=== PATIENT | female | born 1985 | race Caucasian/White ===

== ENCOUNTER → 2017-01-25 | Outpatient (CLI) | payer OTHER | END | disposition home or self-care (01) | LOC: C.PAPS 11:11 | PROVIDERS: ATTEND Physician Assistant | DX: Z12.4 Encounter for screening for malignant neoplasm of cervix (principal) ==

== ENCOUNTER 2022-01-09 02:47 | Inpatient (IN) ==
[2022-01-09] MEDS ORDERED: SODIUM CHLORIDE 0.9% INJ 10 ML VIAL ONE (03:04)
[2022-01-09] MEDS ORDERED: ePHEDrine sulfate 50 MG/ML AMP ONE (03:04)
[2022-01-09] MEDS ORDERED: fentaNYL citrate 100 MCG/2 ML VIAL ONE (03:04)
[2022-01-09] MEDS ORDERED: fentaNYL 2MCG/ML ROPIVACAINE 1.25MG/ML 100 ML BAG EPI ONE (03:05)
[2022-01-09] MEDS ORDERED: LIDOCAINE 2%/EPINEPHRINE 1:200,000 20 ML SDV ONE (03:05)
[2022-01-09] MEDS ORDERED: BUPIVACAINE 0.25% 30 ML VIAL ONE (03:05)
[2022-01-09] MEDS ORDERED: ONDANSETRON INJ 2 MG/ML 2 ML VIAL IV PRN (03:12)
[2022-01-09] MEDS ORDERED: NALBUPHINE HCL INJ 10 MG/ML AMP IV PRN (03:12)
[2022-01-09] MEDS ORDERED: ePHEDrine sulfate 50 MG/ML AMP IV PRN (03:12)
[2022-01-09] MEDS ORDERED: NALOXONE HCL 0.4 MG/1 ML VIAL/CARP IV PRN (03:12)
[2022-01-09] MEDS ORDERED: diphenhydrAMINE 50 MG/ML VIAL IV PRN (03:12)
[2022-01-09] MEDS ORDERED: PROMETHAZINE HCL 6.25 MG in SODIUM CHLORIDE 0.9% 50 ML IV PRN (03:12)
[2022-01-09] MEDS ORDERED: fentaNYL 2MCG/ML ROPIVACAINE 1.25MG/ML 100 ML BAG EPI PRN (03:12)
[2022-01-09] MEDS ORDERED: NALOXONE HCL 1 MG in SODIUM CHLORIDE 0.9% 1000ML 1,000 ML IV PRN (03:12)
--- NOTE | 2022-01-09 03:12 | Anesthesiology Consultation ---
Date of Service January 09, 2022 Assessment & Plan Chart Review Chart Review: Patient NOT seen in Pre Admission Testing and Acceptable Risk for Labor Epidural Consults Requested none ASA ASA2 Proposed Anesthesia Anesthesia Type: Labor Epidural Risk / Benefits Reviewed With: PT / POA / Parent / Guardian, Accepts Plan and Informed Consent Obtained History Allergies Allergy/AdvReac Type Severity Reaction Status Date / Time varenicline [From Chantix] AdvReac Intermediate Mood swings Verified 01/05/22 08:34 Medications Home Medications Medication Instructions Recorded Confirmed Last Taken acetone (urine) test (Ketone Urine #50 ea 09/05/21 01/05/22 Unknown Test strips) blood sugar diagnostic (OneTouch #150 ea 09/05/21 01/05/22 Unknown Verio test strips) blood-glucose meter (OneTouch #1 ea 09/05/21 01/05/22 Unknown Verio Flex Meter) lancets 33 gauge (OneTouch Delica #150 ea 09/05/21 01/05/22 Unknown Plus Lancet) Past Medical History Medical History Allergic rhinitis Anxiety disorder BPPV (benign paroxysmal positional vertigo) Dysfunctional uterine bleeding H/O scabies Hx of varicella Knee injury Laceration of right index finger w/o foreign body w/o damage to nail Low back pain with sciatica Lumbago Lumbar strain Small for dates fetus Vulvar abscess Work related injury Exercise / Class Metabolic Activity II 4-5 Yardwork/Stairs/Walk up hill Past Family History Family History Aunt Diabetes Grandmother (Maternal) Diabetes Hypertension Grandfather (Maternal) Diabetes Hypertension Family/Other Twins, both liveborn Denies family history of Ovarian cancer Breast cancer Colorectal cancer Cancer Past Surgical History Surgical History No pertinent past surgical history Past Anesthesia History No Hx of Anesthesia Complications and No Family Hx of Anesthesia Complications History of PONV No Hx of PONV and No Hx of Motion Sickness Social History Smoking Status: Never smoker Hx Alcohol Use: No Hx Substance Use: Yes substance use type: marijuana Last Used Substance: Days (ago) Last Used Substance Other:: 1 smokes 1gm-0.5gm per day Physical Exam Vital Signs Last Vital Signs Pulse 91 H 01/09/22 03:06 BP 162/67 H 01/09/22 03:06 ENMT Mouth: no dentition abnormality Thyromental Distance: > or= 3.5 Finger Breadths Mallampati Class: II Neck normal visual inspection Respiratory normal respiratory effort Auscultation: lungs clear to auscultation bilaterally Cardiovascular Rate/Rhythm: regular rate and regular rhythm Psychiatric Orientation: alert
[2022-01-09] MEDS ORDERED: OXYTOCIN 30 UNITS/500 ML BAG IV PRN (03:18)
[2022-01-09] MEDS ORDERED: LACTATED RINGER'S 1,000 ML IV PRN (03:18)
--- NOTE | 2022-01-09 03:42 | History & Physical Report ---
Date of Service January 09, 2022 Assessment & Plan (1) Supervision of elderly multigravida: (2) Gestational diabetes: (3) Marijuana abuse: (4) Need for rhogam due to Rh negative mother: Plan 36 y/o at 40 wga in labor VSS Fetus cat 1 Labor - expectant management GDM - will get BG GBS neg desires epidural UDS for marijuana use, pt aware History of Present Illness Chief Complaint: Labor Primary Care Provider: Cory Ovalles MD 36 y/o at 40 wga presents with ctx increasing in frequency and intensity. 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 Hx: G1 2004 at 39 wks G2 2007 at 38 wks G3 2019 SAB G4 2020 SAB G5 current Denies hx STIs 12/2019 neg cyto Allergies Allergy/AdvReac Type Severity Reaction Status Date / Time varenicline [From Chantix] AdvReac Intermediate Mood swings Verified 01/05/22 08:34 Home Medications Medication Instructions Recorded Confirmed Type acetone (urine) test (Ketone Urine #50 ea 09/05/21 01/05/22 Rx Test strips) blood sugar diagnostic (OneTouch #150 ea 09/05/21 01/05/22 Rx Verio test strips) blood-glucose meter (OneTouch #1 ea 09/05/21 01/05/22 Rx Verio Flex Meter) lancets 33 gauge (OneTouch Delica #150 ea 09/05/21 01/05/22 Rx Plus Lancet) Patient History Medical History Allergic rhinitis Anxiety disorder BPPV (benign paroxysmal positional vertigo) Dysfunctional uterine bleeding H/O scabies Hx of varicella Knee injury Laceration of right index finger w/o foreign body w/o damage to nail Low back pain with sciatica Lumbago Lumbar strain Small for dates fetus Vulvar abscess Work related injury Surgical History No pertinent past surgical history Family History Aunt Diabetes Grandmother (Maternal) Diabetes Hypertension Grandfather (Maternal) Diabetes Hypertension Family/Other Twins, both liveborn Denies family history of Ovarian cancer Breast cancer Colorectal cancer Cancer Social History Smoking Status: Never smoker Tobacco Type: Cigarettes packs per day: 1; Hx Alcohol Use: No Hx Substance Use: Yes Prescribed Medications: Marijuana Last Used Substance: Days (ago) Last Used Substance Other:: 1 smokes 1gm-0.5gm per day Preferred Language: Portuguese marital status: marital status details: Hernán Fernandes (38) [phone] Current Living Situation: Spouse and Family Current Living Situation Comment: FOB, 2 kids, 1 roomate, 3 cats, 2 bunny, not changing litter current occupational status: employed current occupation: Delivery Drivers for [employer] Feels Safe at Home: Yes Physical Exam Genitourinary: Manual OB Exam: + cervical dilation 7 cm, + cervical effacement 90% and + station 0 OB Exam Monitor Tracing: + external FHT monitor used, + external uterine monitor used (q5) and + category I (125/mod/+accel/-decel) Results & Data ([facility]) Vital Signs (Past 12 Hours) Vital Signs Pulse BP Pulse Ox 01/09/22 03:29 88 172/92 H 01/09/22 03:28 88 100 01/09/22 03:25 81 151/85 H 01/09/22 03:23 89 157/89 H 100 01/09/22 03:06 91 H 162/67 H 01/09/22 03:04 88 163/99 H Laboratory Results OB Labs: Blood Type O Negative 06/08/21 Antibody Screen NEGATIVE 10/19/21 Hemoglobin 12.2 g/dL (12.0-16.0) 10/19/21 Hematocrit 35.3 % (37-47) L 10/19/21 Mean Corpuscular Volume 89.3 fL (80-100) 06/08/21 Platelet Count 313 K/uL (130-400) 06/08/21 Rubella IgG Antibody Immune (Immune) 06/08/21 Rapid Plasma Reagin Nonreactive (Nonreactive) 06/08/21 Hepatitis B Surface Antigen Neg (Neg) 06/08/21 Hepatitis C Antibody Neg (Neg) 06/08/21 HIV (1&2) Ab and P24 Ag, 4th Gener Neg (Neg) 06/08/21 Glucose 1 Hour 50 gm Load 172 mg/dl (70-130) H 07/27/21 Maternal Serum Alpha Fetoprotein 27.1 ng/mL 07/27/21 OB Optional Labs: Chlamydia trachomatis RNA NOT DETECTED (NOT DETECTED) 06/08/21 Neisseria gonorrhoeae RNA NOT DETECTED (NOT DETECTED) 06/08/21 Alpha Fetoprotein Triple Screen SEE NOTE 07/27/21 Labs Reviewed: low risk panorama--ak cf/sma neg--akh neg afp--akh failed 16 week 2 hr gtt--ak GBS neg Diagnostic Findings post plac Coding Level of Care Code None Diagnoses Supervision of elderly multigravida O09.529 Gestational diabetes O24.419 Marijuana abuse F12.10 Need for rhogam due to Rh negative mother Z29.13
[2022-01-09 03:55] LABS: Hematocrit (blood only) 38.5 % (34.1-44.9); Hemoglobin 12.9 g/dl (12.0-16.0); Mean Corpuscular Hemoglobin 30.9 pg (25.0-34.0); Mean Corpuscular Hgb Conc 33.5 g/dL (32.0-36.0); Mean Corpuscular Volume 92.3 fL (80.0-100.0); Mean Platelet Volume 10.8 fL (9.4-12.3); Platelet Count 222 K/uL (130-400); RDW Coefficient of Variation 13.3 % (11.5-14.5); RDW Standard Deviation 45.1 fL (36.4-46.3); Red Blood Count 4.17 M/uL (3.93-5.22); White Blood Count 13.41 K/ul (4.8-10.8)
[2022-01-09 05:16] LABS: Amphetamines+Metham, Urine Neg (Neg); Barbiturates, Urine Neg (Neg); Benzodiazepine, Urine Neg (Neg); Cocaine, Urine Neg (Neg); MDMA (Ecstacy), Urine Neg (Neg); Methadone, Urine Neg (Neg); Opiate, Urine Neg (Neg); Phencyclidine, Urine Neg (Neg)
--- NOTE | 2022-01-09 09:03 | Labor Progress Brief Note ---
Date of Service January 09, 2022 Subjective Feeling pressure Assessment & Plan (1) Supervision of elderly multigravida: (2) Gestational diabetes: (3) Marijuana abuse: (4) Normal labor: Admission and Anticipated Discharge Date Admission Date: January 09, 2022 Physical Exam Genitourinary: 10/100/+1 AROM for copious clear with finger during exam Begin second stage; pt very numb but able to push effectively FHT Cat 1 [place] Q3min Results & Data ([place]) Vital Signs (Past 12 Hours) Vital Signs Temp Pulse Resp BP Pulse Ox 01/09/22 08:59 141 H 100 01/09/22 08:54 117 H 100 01/09/22 08:53 100 H 173/115 H 01/09/22 08:51 18 01/09/22 08:51 98.4 F 18 01/09/22 08:49 119 H 100 01/09/22 08:44 94 H 99 01/09/22 08:40 95 H 140/97 01/09/22 08:39 100 01/09/22 08:39 118 H 01/09/22 08:39 110 H 134/92 01/09/22 08:34 97 H 97 01/09/22 08:30 18 01/09/22 08:30 18 01/09/22 08:29 99 H 99 01/09/22 08:25 95 H 137/94 01/09/22 08:24 97 H 100 01/09/22 08:19 89 98 01/09/22 08:14 96 H 98 01/09/22 08:09 112 H 98 01/09/22 08:10 116 H 135/90 01/09/22 08:04 86 99 01/09/22 08:00 16 01/09/22 08:00 16 01/09/22 07:59 108 H 99 01/09/22 07:30 18 01/09/22 07:30 18 01/09/22 07:54 87 98 01/09/22 07:53 104 H 138/93 01/09/22 07:49 98 H 98 01/09/22 07:44 103 H 99 01/09/22 07:39 97 01/09/22 07:39 95 H 01/09/22 07:39 97 H 136/90 01/09/22 07:34 119 H 99 01/09/22 07:33 121 H 133/87 01/09/22 07:29 120 H 99 01/09/22 07:24 111 H 99 01/09/22 07:23 91 H 135/93 01/09/22 07:19 100 H 99 01/09/22 07:14 108 H 100 01/09/22 07:09 103 H 98 01/09/22 07:05 18 01/09/22 07:05 97.7 F 18 01/09/22 07:04 85 97 01/09/22 07:01 112 H 137/81 01/09/22 06:59 94 H 96 01/09/22 06:54 88 96 01/09/22 06:49 102 H 96 01/09/22 06:44 93 H 97 01/09/22 06:39 82 96 01/09/22 06:38 101 H 132/79 01/09/22 06:34 80 95 01/09/22 06:29 89 96 01/09/22 06:24 92 H 96 01/09/22 06:23 93 H 140/83 01/09/22 06:19 91 H 96 01/09/22 06:14 82 96 01/09/22 06:09 86 96 01/09/22 06:08 96 H 139/79 01/09/22 06:04 88 96 01/09/22 05:59 97 H 96 01/09/22 05:54 90 96 01/09/22 05:53 103 H 132/85 01/09/22 05:49 93 H 96 01/09/22 05:44 107 H 96 01/09/22 05:39 89 97 01/09/22 05:34 107 H 95 01/09/22 05:29 85 96 01/09/22 05:24 114 H 132/83 99 01/09/22 05:19 116 H 100 01/09/22 05:14 108 H 99 01/09/22 05:09 90 124/75 100 01/09/22 05:04 76 96 01/09/22 04:59 90 97 01/09/22 04:54 78 126/72 97 01/09/22 04:52 107 H 93 01/09/22 04:49 81 96 01/09/22 04:44 88 96 01/09/22 04:39 80 121/74 96 01/09/22 04:34 84 100 01/09/22 04:29 91 H 97 01/09/22 04:24 84 98 01/09/22 04:25 82 121/75 01/09/22 04:19 88 100 01/09/22 04:14 90 100 01/09/22 04:09 105 H 100 01/09/22 04:08 97 H 128/72 01/09/22 04:04 101 H 100 01/09/22 03:59 102 H 100 01/09/22 03:54 113 H 100 01/09/22 03:49 103 H 100 01/09/22 03:46 100 H 85 L 01/09/22 03:44 110 H 100 01/09/22 03:39 99 H 100 01/09/22 03:36 97 H 134/71 01/09/22 03:34 90 100 01/09/22 03:33 136/82 01/09/22 03:32 104 H 125/72 01/09/22 03:29 88 172/92 H 01/09/22 03:28 88 100 01/09/22 03:25 81 151/85 H 01/09/22 03:23 89 157/89 H 100 01/09/22 03:06 91 H 162/67 H 01/09/22 03:04 88 163/99 H 01/09/22 02:56 97.7 F 18 Coding Level of Care Code None Diagnoses Supervision of elderly multigravida O09.529 Gestational diabetes O24.419 Marijuana abuse F12.10 Normal labor O80; Z37.9
--- NOTE | 2022-01-09 09:42 | Delivery Summary ---
Vaginal Delivery Summary Date of Service January 09, 2022 Vaginal Delivery Summary DIAGNOSES: 1. Valentin intrauterine at 40w0d gestation. 2. Spontaneous onset of labor. 3. Group B Streptococcus Neg. 4. Complete placental abruption. PROCEDURE: Spontaneous vaginal delivery without laceration. SURGEON: Diana De Oliveira MD. SATELLITE TV TECHNICIAN: None. ESTIMATED BLOOD LOSS: 250 mL. COMPLICATIONS: None. PLACENTA: Abrupted: Delivered immediately with , along with large soft clot; intact with a 3-vessel cord. DISPOSITION: Stable to labor and delivery. DESCRIPTION: The patient pushed well and brought the head to in DOA position. The 's head was allowed to deliver with contraction force and no further active pushing, with the perineum protected during this time. There was no nuchal cord. Frankly bloody fluid became apparent flowing around the neck and shoulders after delivery of the head, which was especially notable as there had been absolutely no bloody fluid seen through the entire process. The shoulders and body delivered without any difficulty, and the was placed on the maternal abdomen. Immediately after delivery of the , very soft clot roughly the size of an orange passed spontaneously, along with a gush of liquid blood, and the placenta presented at the vaginal introitus. Gentle exploration showed the placenta was fully detached and present in the vaginal vault, so it was retrieved and placed in the placenta bucket which was held roughly level with the mom and infant. During this, the was vigorous and moving all extremities, and making respiratory efforts. The cord was doubly clamped by the MD and then cut by the FOB. The placenta was set on the back table and will be sent for exam. The cervix, vagina and perineum were examined and were found to be without defect requiring repair. The fundus was firm and lochia minimal immediately after delivery. Review of FHT leading up to delivery shows good variability and decels appropriate for second stage (with pushes, recovering between). This information combined with the presentation of bloody fluid only after the head delivered, and the very soft nature of the clot which delivered with the placenta, suggest that abruption occurred only very shortly before delivery. Cord blood was unfortunately unable to be obtained due to the complete abruption at the time of delivery. [facility] Vaginal Delivery Charge Vaginal Delivery Codes: 73310 global code for the antepartum, delivery, and post-
[2022-01-09] MEDS ORDERED: ACETAMINOPHEN 325 MG TAB PO PRN (09:51)
[2022-01-09] MEDS ORDERED: BENZOCAINE 20% AER SPR 82.5 GM CAN EXT PRN (09:51)
[2022-01-09] MEDS ORDERED: oxyCODONE/ACETAMINOPHEN 5mg/325mg TAB PO PRN (09:51)
[2022-01-09] MEDS ORDERED: DIPHTHERIA/TETANUS/PERTUSSIS 0.5 ML SYR/VIAL IM ONE (09:51)
[2022-01-09] MEDS ORDERED: HYDROCORTISONE ACETATE 25 MG SUPP PR PRN (09:51)
--- NOTE | 2022-01-09 10:15 | Anesthesia Procedure Note ---
Date of Service January 09, 2022 Anesthesia Post Epidural Note Vital Signs Vital Signs: Temp Pulse Resp BP Pulse Ox 36.4 C L 99 H 18 126/60 100 01/09/22 09:45 01/09/22 10:01/09/22 09:45 01/09/22 10:01/09/22 09:29 Notes Mental Status: alert / awake / arousable Patient Amnestic to Procedure: Yes Nausea / Vomiting: adequately controlled Pain: adequately controlled Airway Patency, RR, SpO2: stable & adequate BP & HR: stable & adequate Hydration State: stable & adequate Neuraxial Anesthesia: was administered and sensory block resolved Anesthetic Complications: no major complications apparent Epidural: Removed without complications and With tip intact
[2022-01-09] MEDS ORDERED: SODIUM CHLORIDE 0.9% 250 ML IV PRN (10:48)
[2022-01-09] MEDS: IBUPROFEN 600 MG TAB PO PRN ×2 (12:55→20:58)
[2022-01-09] MEDS: NICOTINE 21 MG/24 HR TDSY TD SCH (15:45)
[2022-01-09] MEDS: DOCUSATE SODIUM 100 MG CAP PO SCH (20:58)
[2022-01-09] MEDS ORDERED: CALCIUM CARBONATE 500 MG CHEWABLE TAB PO PRN (22:37)
[2022-01-10] MEDS: IBUPROFEN 600 MG TAB PO PRN (03:25)
[2022-01-10 06:37] LABS: Hematocrit (blood only) 29.5 % (34.1-44.9); Hemoglobin 10.2 g/dl (12.0-16.0); Mean Corpuscular Hgb Conc 34.6 g/dL (32.0-36.0); Mean Corpuscular Volume 89.7 fL (80.0-100.0); Mean Platelet Volume 10.7 fL (9.4-12.3); Platelet Count 197 K/uL (130-400); RDW Coefficient of Variation 13.4 % (11.5-14.5); RDW Standard Deviation 44.1 fL (36.4-46.3); Red Blood Count 3.29 M/uL (3.93-5.22); White Blood Count 15.76 K/ul (4.8-10.8)
--- NOTE | 2022-01-10 06:46 | Obstetrical Progress Note ---
Date of Service <Vonnie Knight DO - Last Filed: 01/10/22 07:27> January 10, 2022 Assessment & Plan <Vonnie Knight DO - Last Filed: 01/10/22 07:27> (1) Normal labor: (2) Supervision of elderly multigravida: (3) Need for rhogam due to Rh negative mother: Plan s/p PPD 1 -O-, GBS-, rubella immune -Hemoglobin reviewed, 12.9 (8/) -encourage ambulation, return to regular diet, monitor lochia -Discussed discharge instructions with patient, awaiting clearance from peds. <Diana De Oliveira MD - Last Filed: 01/10/22 07:44> (1) Normal labor: (2) Supervision of elderly multigravida: (3) Need for rhogam due to Rh negative mother: Subjective <Vonnie Knight DO - Last Filed: 01/10/22 07:27> Adia is a 36 y/o female who is PPD #1 following delivery at 40 0/7 weeks. Patient was seen and examined at bedside. She reports feeling well overall this morning. Notes some abdominal cramping & 3/10 pain well managed on analgesics. . Tolerating meals overnight and able to ambulate some. Has been passing gas and no bowel movement yet. Has some persistent lochia with some improvement this morning. Currently formula feeding. Constitutional: no fever, no chills or no sweats Respiratory: no cough, no dyspnea or no wheezing Cardiovascular: no chest pain, no palpitations or no calf pain Breast: no breast pain Genitourinary (female): no dysuria Neurologic: no headache(s) Physical Exam <Vonnie Knight DO - Last Filed: 01/10/22 07:27> Constitutional WD/WN, vitals as above no acute distress Respiratory no respiratory distress Auscultation: lungs clear to auscultation bilaterally; no rales, no rhonchi and no wheezes Cardiovascular RRR, no murmur, no edema Extremities: no calf tenderness and no edema Negative Griselda's sign bilaterally. Gastrointestinal (Abdomen) Inspection/Auscultation: normal bowel sounds Genitourinary Uterine fundus firm, palpable below the umbilicus. Results & Data ([facility]) <Vonnie Knight DO - Last Filed: 01/10/22 07:27> Vital Signs (Past 12 Hours) Vital Signs Temp Pulse Resp BP Pulse Ox O2 Del Method 01/10/22 03:25 36.5 C 83 16 127/73 99 Room Air 01/09/22 22:54 36.9 C 64 16 133/84 96 Room Air 01/09/22 20:20 36.9 C 93 H 20 134/88 98 Room Air <Diana De Oliveira MD - Last Filed: 01/10/22 07:44> Co-Signing Physician Notes Resident Physician Supervision Note: I interviewed and examined the patient. Discussed with Dr. Knight and agree with findings and plan as documented in the note. Any exceptions or clarifications are listed here: [ ] Documented By: Diana De Oliveira MD, FACOG Resident Activity Tracking <Vonnie Knight DO - Last Filed: 01/10/22 07:27> Resident Involvement: Resident Care Provided Care Provided: OB Delivery
[2022-01-10] MEDS: DOCUSATE SODIUM 100 MG CAP PO SCH (07:43)
[2022-01-10] MEDS: NICOTINE 21 MG/24 HR TDSY TD SCH (07:44)
[2022-01-10] MEDS ORDERED: PRENATAL VITAMIN 1 TAB PO SCH (08:00)
[2022-01-11 02:08] LABS: Marijuana Quant, GCMS Urine 390 ng/mL (<5)
== END 2022-01-10 13:55 | disposition home or self-care (01) | DRG 805 ==
LOC: OPB 02:47 → 4S1 02:53 → 4E1 12:34

== ENCOUNTER 2023-08-21 20:47 | Inpatient (IN) ==
[2023-08-21] MEDS ORDERED: LIDOCAINE 1% LOCAL 20 ML VIAL INFIL PRN (20:53)
[2023-08-21] MEDS ORDERED: OXYTOCIN 30 UNITS/NSS 30 UNITS/500 ML BAG IV PRN (20:53)
--- NOTE | 2023-08-21 21:25 | History & Physical Report ---
Date of Service August 21, 2023 Assessment & Plan (1) IUGR (intrauterine growth restriction) affecting care of mother: (2) IUFD at 20 weeks or more of gestation: Plan: No FHT visualized on bedside scan. Will have formal ultrasound completed to verify further, prior to additional intervention. The maternal HR is in the 140s via pulse oximeter, and therefore produces a potentially confusing tracing that mimics a normal FHT tracing. Presuming confirmation of the current expected diagnosis of IUFD, will discuss with patient and FOB the process of IOL and support through the grief and loss that accompany an event such as this. Severe FGR noted with other complications of , and unclear whether the earlier abdominal trauma is truly causative vs coincidental, however management moving forward does not really require differentiation. Admission and Anticipated Discharge Date Admission Date: August 21, 2023 History of Present Illness Primary Care Provider: Cory Ovalles MD 37yo at 34w3d with SIUP dated by LMP c/w 1st tri US, and complicated by A1GDM, Tobacco smoking, THC use, Rh negative blood type, AMA, and severe IUGR with all measurements <1%ile as recently as two days ago. Adia called 911 and was brought to [facility] due to significant vaginal bleeding. Patient attributed this to being bumped in the abdomen a bit earlier this evening by her son, who was being playful. She felt trickling, noted the bleeding, and was brought here by ambulance. She stated she thought it was all blood, no fluid, and that she had felt the infant move during her ambulance ride. She complains of cramps but is not c/o timeable painful contractions. EMT's remained in the room during this conversation as they had just transferred her from their litter to the L&D bed. Adia met with me in the office just yesterday, at which time she had a reactive NST and reassuring ultrasound with normal UAD and DVP. We reviewed during that visit her recent US done at [facility], and their recommendations for delivery at [facility] at 37 weeks with interim 2x/wk testing to be done partially at [facility] and partially at [facility] for patient convenience and cost-control. She was planning to return to our office Saturday for her next round of testing. Today, the initial heartbeat auscultated on EFM was 130s in the RLQ of the maternal abdomen, and this was tentatively reassuring, however ultrasound was brought to the room at my request to confirm maternal vs source. Adia's radial pulse was also 130s. On ultrasound, with numerous nurses and staff in the room plus Dr. Mcghee the entry level installation technician cryogenic transport driver, unfortunately, we visualized heart chambers that were still, no movement, and subjectively low amniotic fluid without an obvious measurable pocket. Fetus was in vertex presentation. There was significant vaginal bleeding with a clot on the EMT litter measuring approx 1/2" x 4" and additional fresh blood similar to a heavy menstrual flow in the vaginal vault. Exam was 5-6cm, 80%, -2. [place] shows Q1-2min contractions which patient is tolerating well. Allergies Allergy/AdvReac Type Severity Reaction Status Date / Time varenicline [From Chantix] AdvReac Intermediate Mood swings Verified 08/20/23 09:10 Home Medications Medication Instructions Recorded Confirmed Type vit 168-iron 27 mg-folic cap PO 02/19/23 08/20/23 History acid 800 mcg-omega3 235 mg capsule (One-A-Day -1) acetone (urine) test (Ketone Urine #50 ea 04/19/23 08/20/23 Rx Test strips) blood sugar diagnostic (OneTouch #150 ea 04/19/23 08/20/23 Rx Verio test strips) lancets 33 gauge (OneTouch Delica #150 ea 04/19/23 08/20/23 Rx Plus Lancet) Patient History Medical History (Updated 08/21/23 @ 21:28 by Diana De Oliveira MD) IUGR (intrauterine growth restriction) affecting care of mother Vulvar abscess Lumbago Knee injury Dysfunctional uterine bleeding BPPV (benign paroxysmal positional vertigo) Anxiety disorder Allergic rhinitis Marijuana abuse Missed Small for dates fetus Drug use affecting Hx of varicella H/O scabies Work related injury Lumbar strain Low back pain with sciatica Laceration of right index finger w/o foreign body w/o damage to nail Surgical History No pertinent past surgical history Family History Aunt Diabetes Grandmother (Maternal) Diabetes Hypertension Grandfather (Maternal) Diabetes Hypertension Family/Other Twins, both liveborn Denies family history of Ovarian cancer Breast cancer Colorectal cancer Cancer Social History (Updated 02/19/23 @ 13:39 by Francia Paula) Smoking Status: Current every day smoker Tobacco Type: Cigarettes packs per day: 1; Cigarettes Per Day: 1/2- full pack per day; Do You Dip or Chew Tobacco: No; Hx Alcohol Use: No Hx Substance Use: Yes Prescribed Medications: Marijuana Last Used Substance: Days (ago) Last Used Substance Other:: 1 smokes 1gm-0.5gm per day Substance Use Type Other:: edibles Preferred Language: Japanese Communication Ability: Effective Music Professor Required: No Beliefs That Will Affect Care: None marital status: marital status details: Hernán Fernandes (40) [phone] Current Living Situation: Spouse and Family Current Living Situation Comment: spouse 3 kids, 2 cats, kids changing litter current occupational status: employed current occupation: [employer] Feels Safe at Home: Yes Assistive Devices: None Results & Data Vital Signs (Past 12 Hours) Vital Signs Pulse Pulse Ox 08/21/23 21:08 146 H 98 08/21/23 21:03 136 H 99 Coding Level of Care Code None Diagnoses Poor growth affecting management of mother in third trimester, single or unspecified fetus O36.5930 Fetus number: single or unspecified fetus Trimester: third trimester IUFD at 20 weeks or more of gestation O36.4XX0 (1) IUGR (intrauterine growth restriction) affecting care of mother Fetus number: single or unspecified fetus Trimester: third trimester Qualified Code(s): O36.5930 - Maternal care for other known or suspected poor growth, third trimester, not applicable or unspecified
[2023-08-21 21:44] LABS: Hematocrit (blood only) 32.7 % (37.0-47.0); Hemoglobin 11.6 g/dl (12.0-16.0); Mean Corpuscular Hemoglobin 31.4 pg (25.0-34.0); Mean Corpuscular Hgb Conc 35.5 g/dL (32.0-36.0); Mean Corpuscular Volume 88.6 fL (80.0-100.0); Mean Platelet Volume 11.4 fL (9.4-12.4); Platelet Count 247 K/uL (130-400); RDW Standard Deviation 42.1 fL (36.4-46.3); Red Blood Count 3.69 M/uL (4.20-5.40); White Blood Count 19.98 K/ul (4.8-10.8)
[2023-08-21] MEDS ORDERED: SODIUM CHLORIDE 0.9% 250 ML IV PRN (21:45)
[2023-08-21] MEDS: LACTATED RINGER'S 1,000 ML IV PRN (22:00)
--- NOTE | 2023-08-21 22:03 | Labor Progress Brief Note ---
Date of Service August 21, 2023 Subjective Patient experienced vagal response during her bedside formal US. Emesis x1 with diaphoresis and feeling lightheaded. Shortly thereafter improved. Initial IV site in L antecub from ambulance is not running well; attempting 2nd site, IV team required / now in pt room. Bedside formal scan done while I observed, report not yet generated but my understanding is that the scan does confirm IUFD, vertex, with no obvious fluid pocket despite normal DVP yesterday, and placenta highly suspicious for abruption with retroplacental collection. Ongoing VB noted, moderate. Hgb 11.6 with plts 247. Full coags ordered as well as T&C given risks of significant bleeding and coagulopathy associated with abruption. Patient and Lon offered emotional support, counseled on the confirmation of diagnosis, suspected but not confirmed etiology, and plan from this point. Augmentation of PTL to effect delivery, with epidural as patient would prefer one. Assessment & Plan Admission and Anticipated Discharge Date Admission Date: August 21, 2023 Results & Data Vital Signs (Past 12 Hours) Vital Signs Temp Pulse Resp Pulse Ox 08/21/23 21:53 139 H 100 08/21/23 21:49 136 H 93 08/21/23 21:48 127 H 99 08/21/23 21:43 118 H 99 08/21/23 21:38 142 H 99 08/21/23 21:33 142 H 99 08/21/23 21:31 98.6 F 18 08/21/23 21:28 144 H 99 08/21/23 21:23 144 H 99 08/21/23 21:18 141 H 99 08/21/23 21:13 146 H 100 08/21/23 21:08 146 H 98 08/21/23 21:03 136 H 99 Coding Level of Care Code None
[2023-08-21 22:05] LABS: Albumin Globulin Ratio 1.3 (0.9-2); Albumin Level 3.3 gm/dl (3.4-5.0); BUN Creatinine Ratio 17.6 (10-20); Bilirubin,Total 0.3 mg/dl (0.2-1.0); Calcium 8.6 mg/dl (8.6-10.3); Creatinine Clr Calc Pharmacy 119.5 ml/min; Est GFR (African American) 130.4 ml/min; Est GFR (Non-African American) 112.5 ml/min; Globulin 2.6 gm/dl (2.5-4.0); Potassium 3.9 mmol/L (3.5-5.1); Total Protein 5.9 gm/dl (6.0-8.3)
[2023-08-21 22:06] LABS: Basophils # (auto) 0.08 K/uL (0.00-0.20); Basophils % (auto) 0.4 %; Eosinophils # (auto) 0.17 K/uL (0.00-0.50); Eosinophils % (auto) 0.9 %; Immature Granulocytes # (auto) 0.22 K/uL (0.01-0.20); Immature Granulocytes % (auto) 1.1 %; Lymphocytes # (auto) 4.87 K/uL (1.20-3.40); Lymphocytes % (auto) 24.4 %; Monocytes # (auto) 1.75 K/uL (0.11-0.59); Monocytes % (auto) 8.8 %; Neutrophils # (auto) 12.89 K/uL (1.40-6.50); Neutrophils % (auto) 64.4 %
--- NOTE | 2023-08-21 22:23 | Ultrasound Report ---
Examination: OB Ultrasound CLINICAL HISTORY: check heart beat Technique: Multiple real-time transabdominal sonographic images were obtained. Comparison: Comparison is made to ultrasound 08/16/2023 and 08/20/2023 Findings: IMPRESSION: No heart tones are seen. ACT 112: Negative or not required by law. Electronically signed by: Charles Villar M.D. 08/21/2023 10:21 PM
--- NOTE | 2023-08-21 22:36 | Communication Note ---
Date of Service: August 21, 2023 Patient with another episode of emesis. Does note eating heavy dinner of sloppy joes, corn and puerto rican fries shortly before the bleeding began at about 8pm. Still conversant with care team and FOB, calm considering her circumstances, not in evident pain/distress. Also has tachycardia 105-140s despite normal BP, normal Hgb. Notes last cigarette was 8pm tonight and last THC was "the other day," has been an ongoing user. Cvx now VB continues to be present although slowed to the level of a significant bloody show. Blood being passed is at least partly dark/clotted with some fresh red component as well. Will offer zofran PRN. Has had fluid bolus x2. Will place [place] in part to allow better I/O to figure out if tachy due to hypovolemia with acute losses not yet reflecting in labs, vs due to nicotine/substances, etc. UDS to be drawn off [place] prior to admin of any relevant medications here. Can have epidural prior to initiating pitocin. Anticipating of IUFD boy "Nikolay"
[2023-08-21 23:15] LABS: Fibrinogen 269 mg/dl (184-400); INR 0.9 (0.9-1.1); Prothrombin Time 10.2 Seconds (9.0-12.0)
[2023-08-21] MEDS ORDERED: ROPIVACAINE 0.5% PF 5 MG/ML 20 ML VIAL EPI PRN (23:18)
[2023-08-21] MEDS ORDERED: BUPIVACAINE 0.25% PF 30 ML VIAL EPI PRN (23:18)
[2023-08-21] MEDS ORDERED: diphenhydrAMINE 50 MG/ML VIAL IV PRN (23:18)
[2023-08-21] MEDS ORDERED: fentaNYL citrate PF 100 MCG/2 ML VIAL EPI PRN (23:18)
[2023-08-21] MEDS ORDERED: NALBUPHINE HCL 5 MG in SYRINGE 0 ML IV PRN (23:18)
[2023-08-21] MEDS ORDERED: NALOXONE HCL 1 MG in SODIUM CHLORIDE 0.9% 1,000 ML IV PRN (23:18)
[2023-08-21] MEDS ORDERED: LIDOCAINE 2% MPF LOCAL 5 ML VIAL EPI PRN (23:18)
[2023-08-21] MEDS ORDERED: NALOXONE HCL 0.4 MG/1 ML VIAL/CARP IV PRN (23:18)
[2023-08-21] MEDS ORDERED: ONDANSETRON INJ 2 MG/ML 2 ML VIAL IV PRN (23:18)
[2023-08-21] MEDS ORDERED: SODIUM CHLORIDE 0.9% PF INJ 10 ML VIAL EPI PRN (23:18)
[2023-08-21] MEDS ORDERED: fentANYL 2 MCG/ML BUPIVacaine 0.125%-NSS 100ML BAG EPI PRN (23:18)
--- NOTE | 2023-08-21 23:18 | Anesthesiology Consultation ---
Date of Service August 21, 2023 Assessment & Plan ASA ASA3 Proposed Anesthesia Anesthesia Type: Labor Epidural Risk / Benefits Reviewed With: PT / POA / Parent / Guardian, Accepts Plan and Informed Consent Obtained Additional Comments: IUFD History Height/Weight Height: 5 ft 4 in Weight: 83.461 kg Allergies Allergy/AdvReac Type Severity Reaction Status Date / Time varenicline [From Chantix] AdvReac Intermediate Mood swings Verified 08/20/23 09:10 Medications Home Medications Medication Instructions Recorded Confirmed Last Taken vit 168-iron 27 mg-folic cap PO 02/19/23 08/20/23 Unknown acid 800 mcg-omega3 235 mg capsule (One-A-Day -1) acetone (urine) test (Ketone Urine #50 ea 04/19/23 08/20/23 Unknown Test strips) blood sugar diagnostic (OneTouch #150 ea 04/19/23 08/20/23 Unknown Verio test strips) lancets 33 gauge (OneTouch Delica #150 ea 04/19/23 08/20/23 Unknown Plus Lancet) Active Medications Generic Name Dose Route Start Last Admin Trade Name Freq PRN Reason Stop Dose Admin Lactated Ringer's 1,000 mls @ 125 mls/hr 08/21/23 20:53 08/21/23 23:16 Lr IV 08/23/23 20:52 999 mls/hr .Q8H PRN Administration L&D Protocol Protocol Past Medical History Medical History IUGR (intrauterine growth restriction) affecting care of mother Vulvar abscess Lumbago Knee injury Dysfunctional uterine bleeding BPPV (benign paroxysmal positional vertigo) Anxiety disorder Allergic rhinitis Marijuana abuse Missed Small for dates fetus Drug use affecting Hx of varicella H/O scabies Work related injury Lumbar strain Low back pain with sciatica Laceration of right index finger w/o foreign body w/o damage to nail Exercise / Class Metabolic Activity II 4-5 Yardwork/Stairs/Walk up hill Past Family History Family History Aunt Diabetes Grandmother (Maternal) Diabetes Hypertension Grandfather (Maternal) Diabetes Hypertension Family/Other Twins, both liveborn Denies family history of Ovarian cancer Breast cancer Colorectal cancer Cancer Past Surgical History Surgical History No pertinent past surgical history Past Anesthesia History No Hx of Anesthesia Complications and No Family Hx of Anesthesia Complications History of PONV No Hx of PONV and No Hx of Motion Sickness Social History Smoking Status: Current every day smoker tobacco type: cigarettes Smoking cigarettes per day: 1/2- full pack per day Do You Dip or Chew Tobacco: No Hx Alcohol Use: No Hx Substance Use: Yes substance use type: marijuana Substance Use Type Other:: edibles Last Used Substance: Days (ago) Last Used Substance Other:: 1 smokes 1gm-0.5gm per day Review of Systems denies fever/cough/ colds/ chest pain/ SOB/ TRISHA denies TRISHA Physical Exam Vital Signs Last Vital Signs Temp 37.0 C 08/21/23 21:31 Pulse 138 H 08/22/23 00:02 Resp 18 08/21/23 21:31 BP 90/53 L 08/22/23 00:01 Pulse Ox 99 08/22/23 00:02 ENMT Mouth: no TMJ abnormality and no dentition abnormality Thyromental Distance: > or= 3.5 Finger Breadths Mallampati Class: II Neck neck extension not limited Respiratory normal respiratory effort; no respiratory distress Auscultation: lungs clear to auscultation bilaterally Cardiovascular Rate/Rhythm: regular rate and regular rhythm Neurologic moves all extremities Psychiatric Orientation: alert and oriented x 3 Testing Laboratory Results 08/21/23 21:11 08/21/23 21:07 PT 10.2 Seconds (9.0-12.0) 08/21/23 22:24 INR 0.9 (0.9-1.1) 08/21/23 22:24 Blood Type O Negative 08/21/23 21:07 Antibody Screen POSITIVE A 08/21/23 21:07
[2023-08-21] MEDS: ePHEDrine sulfate 50 MG/ML AMP ONE (23:40)
[2023-08-21] MEDS ORDERED: PENICILLIN GK 3 MU in DEXTROSE 5% 100 ML IV PRN (23:53)
[2023-08-21] MEDS: LIDOCAINE 2%/EPINEPHRINE 1:200,000 20 ML PF ONE (23:54)
[2023-08-21] MEDS: fentaNYL citrate PF 100 MCG/2 ML VIAL ONE (23:54)
[2023-08-21] MEDS: BUPIVACAINE 0.25% PF 30 ML VIAL ONE (23:54)
[2023-08-21] MEDS: fentANYL 2 MCG/ML BUPIVacaine 0.125%-NSS 100ML BAG ONE (23:55)
[2023-08-22 00:11] LABS: Amphetamines+Metham, Urine Neg (Neg); Barbiturates, Urine Neg (Neg); Benzodiazepine, Urine Neg (Neg); Cocaine, Urine Neg (Neg); MDMA (Ecstacy), Urine Neg (Neg); Marijuana, Urine Pos (Neg); Methadone, Urine Neg (Neg); Opiate, Urine Neg (Neg); Phencyclidine, Urine Neg (Neg)
[2023-08-22] MEDS: OXYTOCIN 30 UNITS/NSS 30 UNITS/500 ML BAG IV PRN ×2 (00:32→08:12)
[2023-08-22] MEDS: PENICILLIN GK 6 MU in DEXTROSE 5% 250 ML IV ONE (01:23)
[2023-08-22] MEDS: SODIUM CHLORIDE 0.9% PF INJ 10 ML VIAL ONE (01:23)
[2023-08-22] MEDS: fentaNYL citrate PF 100 MCG/2 ML VIAL EPI STA (01:24)
[2023-08-22] MEDS: LIDOCAINE 2%/EPINEPHRINE 1:200,000 20 ML PF EPI STA (01:24)
[2023-08-22] MEDS: BUPIVACAINE 0.25% PF 30 ML VIAL EPI STA (01:24)
[2023-08-22] MEDS: SODIUM CHLORIDE 0.9% PF INJ 10 ML VIAL EPI STA (01:25)
[2023-08-22] MEDS: ePHEDrine sulfate 50 MG/ML AMP IV PRN (03:14)
[2023-08-22] MEDS: ONDANSETRON INJ 2 MG/ML 2 ML VIAL IV PRN (03:18)
--- NOTE | 2023-08-22 07:46 | Delivery Summary ---
Vaginal Delivery Summary Date of Service August 22, 2023 Vaginal Delivery Summary DIAGNOSES: 1. Intrauterine at 34w4d gestation with Demise 2. Severe IUGR <1%ile 3. A1GDM 4. AMA 5. Tobacco use 6. THC exposure PROCEDURE: Spontaneous vaginal delivery SURGEON: Diana De Oliveira MD. CUSTOMER OPERATIONS ASSOCIATE: None. ESTIMATED BLOOD LOSS: 150 mL. COMPLICATIONS: None. PLACENTA: Spontaneous and intact with a 3-vessel cord. DISPOSITION: Stable to labor and delivery. DESCRIPTION: Adia presented approximately 10 hours prior to delivery with acute onset vaginal bleeding. She was found to have a vertex-presenting fetus with no heart tones, oligohydramnios, and likely placental abruption based on sonographically visible retroplacental collection. She was already 5-6cm dilated and her contractions were augmented through the night with pitocin. Membranes presented at the labia as the patient became aware of some vaginal pressure. The care team prepped for delivery. Membranes ruptured with my examining finger, and a small amount of clear and normal-appearing amniotic fluid was seen. The head followed just behind. With one contraction, Adia delivered Nikolay's head easily. A loop of cord rested over his left shoulder, which was the anterior shoulder, but was easily slid downwards and had not been on tension. The remainder of Nikolay's body delivered easily, and he was placed on Adia's abdomen. Immediately along with the delivery of the baby, the placenta fell from the vagina into the catch-bag along with a moderate amount of dark clotted blood, essentially confirming complete abruption. Cord was clamped and cut. Nikolay was grossly without defect and nonmalodorous. The cervix, vagina and perineum were examined and were found to be without defect requiring repair. The fundus was firm and lochia minimal immediately after delivery. [facility] Vaginal Delivery Charge Vaginal Delivery Codes: 20145 global code for the antepartum, delivery, and post-
[2023-08-22] MEDS ORDERED: HYDROCORTISONE ACETATE 25 MG SUPP PR PRN (08:06)
[2023-08-22] MEDS ORDERED: DIPHTHER/TETAN/PERTUS Vaccine (Tdap, Adol/Adult) 0.5mL IM ONE (08:06)
[2023-08-22] MEDS ORDERED: ACETAMINOPHEN 325 MG TAB PO PRN (08:06)
[2023-08-22] MEDS ORDERED: BENZOCAINE 20% SPRY 85 APPLN/85 GM CAN EXT PRN (08:06)
[2023-08-22] MEDS ORDERED: IBUPROFEN 600 MG TAB PO PRN (08:06)
[2023-08-22] MEDS ORDERED: oxyCODONE/ACETAMINOPHEN 5mg/325mg TAB PO PRN (08:06)
[2023-08-22] MEDS ORDERED: bisacodyL 10 MG SUPP PR PRN (08:06)
--- NOTE | 2023-08-22 08:57 | Anesthesia Procedure Note ---
Date of Service August 22, 2023 Anesthesia Post Epidural Note Vital Signs Vital Signs: Temp Pulse Resp BP Pulse Ox 97.9 F 99 H 18 97/55 L 100 08/22/23 08:23 08/22/23 08:41 08/22/23 08:40 08/22/23 08:41 08/22/23 07:27 Notes Mental Status: alert / awake / arousable and participated in evaluation Nausea / Vomiting: adequately controlled Pain: adequately controlled Airway Patency, RR, SpO2: stable & adequate BP & HR: stable & adequate Hydration State: stable & adequate Neuraxial Anesthesia: was administered and sensory block is resolving Anesthetic Complications: no major complications apparent and Pt Satisfied with anesthetic care Epidural: Removed without complications and With tip intact
[2023-08-22] MEDS: PRENATAL VITAMIN 1 TAB PO SCH (10:56)
[2023-08-22] MEDS: DOCUSATE SODIUM 100 MG CAP PO SCH (10:56)
[2023-08-23] MEDS ORDERED: bisacodyL 5 MG TABEC PO SCH (20:00)
[2023-08-24 00:22] LABS: Marijuana Quant, GCMS Urine 2049 ng/mL (<5)
== END 2023-08-22 18:45 | disposition home or self-care (01) | DRG 805 ==
LOC: 4S1 20:47